=== PATIENT | male | born 1990 | race Caucasian/White ===

== ENCOUNTER 2020-04-08 11:14 | Emergency (ER) | payer MEDICAID ==
[2020-04-08] MEDS ORDERED: DIPH/PERTUSS(ACELL)/TETANUS VAC/PF 0.5 ML SYR (>=10YO) IM ONE (12:12)
--- NOTE | 2020-04-08 12:14 | ER Document Report ---
ED Medical Screen (RME) - General Chief Complaint: Foreign Body Stated Complaint: STEPPED ON A SCREW/LEFT FOOT Time Seen by Provider: 04/08/20 12:11 Mode of Arrival: Ambulatory Information source: Patient Notes: This 30-year-old male who stepped on a 2 inch Tae screw that penetrated through a sandal a sock and into his foot. He was coming down off a ladder when he stepped on it. He actually tried to remove it with a power drill and was and able to because it was too firmly placed in the bone. - Related Data Allergies/Adverse Reactions: No Known Allergies Allergy (Verified 04/08/20 12:03) Past Medical History - Social History Frequency of alcohol use: None Drug Abuse: None Past Surgical History: Reports: Hx Appendectomy Physical Exam - Vital signs Vitals: Temp Pulse Resp BP Pulse Ox 98.1 F 80 16 118/74 98 04/08/20 11:22 04/08/20 11:22 04/08/20 11:22 04/08/20 11:22 04/08/20 11:22 Course - Vital Signs Vital signs: Temp Pulse Resp BP Pulse Ox 98.1 F 80 16 118/74 98 04/08/20 12:04 04/08/20 11:22 04/08/20 11:22 04/08/20 11:22 04/08/20 11:22
[2020-04-08] MEDS ORDERED: HYDROCODONE/ACETAMINOPHEN 5-325 MG TABLET PO ONE (12:18)
--- NOTE | 2020-04-08 12:37 | RADIOLOGY REPORT (SQ) ---
EXAM DESCRIPTION: FOOT LEFT COMPLETE IMAGES COMPLETED DATE/TIME: 04/08/2020 12:22 pm REASON FOR STUDY: FB COMPARISON: None. EXAM PARAMETERS: NUMBER OF VIEWS: Three views. TECHNIQUE: AP, lateral and oblique radiographic images acquired of the left foot. LIMITATIONS: None. FINDINGS: MINERALIZATION: Normal. BONES: No acute fracture or dislocation. No worrisome bone lesions. JOINTS: No effusion. SOFT TISSUES: 7.5 cm length metallic screw radiopaque foreign body in the medial plantar soft tissues , approximately 3.5 cm of the foreign body is embedded in the soft tissues with the tip near the medi al cortex of the 1st metatarsal proximal metaphysis. . OTHER: No other significant finding. IMPRESSION: NO FRACTURE.7.5 cm length metallic screw radiopaque foreign body in the medial plantar s oft tissues, approximately 3.5 cm of the foreign body is embedded in the soft tissues with the tip ne ar the medial cortex of the 1st metatarsal proximal metaphysis. TECHNICAL DOCUMENTATION: JOB ID: [id number] [place]-72 2010 [employer]- All Rights Reserved Reading location - IP/workstation name: [email or web address]
[2020-04-08] MEDS ORDERED: FENTANYL CITRATE INJ/PF 100 MCG/2 ML AMPUL IV ONE (12:44)
--- NOTE | 2020-04-08 12:47 | ER Document Report ---
ED General - General Chief Complaint: Foreign Body Stated Complaint: STEPPED ON A SCREW/LEFT FOOT Time Seen by Provider: 04/08/20 12:11 Mode of Arrival: Ambulatory Notes: HPI: 30-year-old male who presents when he was walking on his flip-flops outside stepped on a screw. Tetanus shot unknown. Patient is not diabetic. He was unable to extract the screw himself. He denies pain or injury to any other location. ROS: See HPI Reviewed vital signs and nursing note as charted by RN. PHYSICAL EXAM: CONSTITUTIONAL: Alert and oriented and responds appropriately to questions. Well-appearing; well-nourished EXT: Patient is wearing socks or flip-flops. There was a screw to the plantar aspect to the flip-flop into the foot. No active bleeding appreciated - Related Data Allergies/Adverse Reactions: No Known Allergies Allergy (Verified 04/08/20 12:03) Past Medical History - General Information source: Patient - Social History Smoking Status: Former Smoker Frequency of alcohol use: None Drug Abuse: None Family History: Reviewed & Not Pertinent Patient has homicidal ideation: No Past Surgical History: Reports: Hx Appendectomy Physical Exam - Vital signs Vitals: Temp Pulse Resp BP Pulse Ox 98.1 F 80 16 118/74 98 04/08/20 11:22 04/08/20 11:22 04/08/20 11:22 04/08/20 11:22 04/08/20 11:22 Course - Re-evaluation Re-evalutation: 04/08/20 12:47 Given the history and physical we did obtain imaging showing what appears to be an embedded screw not Omar any bone. Tetanus has been updated. We will provide 50 mcg of fentanyl and place the patient on the monitor and attempt to gently extract the screw at this time. 04/08/20 15:37 [place] a with gentle extraction was unsuccessful. I did call and speak directly to the orthopedic surgeon. He states he was very comfortable with me performing conscious sedation and manual retraction. I have explained the risks and benefits with the patient and . They are comfortable with me performing the procedure. 04/08/20 15:37 Patient tolerated the procedure very well. We will provide antibiotics, crutches, strict return precautions with orthopedic follow-up. - Vital Signs Vital signs: Temp Pulse Resp BP Pulse Ox 98.1 F 80 16 118/74 98 04/08/20 12:04 04/08/20 11:22 04/08/20 11:22 04/08/20 11:22 04/08/20 11:22 Procedures - Conscious Sedation Conscious sedation Time started: 14:28 Time completed: 14:35 Consent obtained: Yes Normal healthy pt.: P1. - ASA Classification Airway Evaluation: Abnormal 3-3-2 rule Mallampati Classification: Class 2 Used during procedure: Suction available, IV access obtained, Pulse ox on pt., equipment monitor phototypesetting on pt. Medications administered: Other Reversal agents: None I personally performed/intraservice time: Sedation, Procedure, 30 min or less Complications: No Notes: We did use propofol. Using manual extraction I was able to remove the screw from the patient's plantar aspect of the foot. Discharge - Discharge Clinical Impression: Superficial foreign body, left foot, initial encounter Condition: Good Disposition: HOME, SELF-CARE Additional Instructions: Come back immediately for any increased pain, swelling, fever, discharge, or any other acute problems. Please follow-up with the orthopedic surgeon as we have provided an expedited for you. Prescriptions: Levofloxacin [Levaquin 500 mg Tablet] 500 mg PO DAILY #5 tablet Hydrocodone/Acetaminophen [[place] 5-325 mg Tablet] 1 tab PO Q8 #10 tablet Referrals: ANNIE GOULD JR, DO [ACTIVE PROVISIONAL STAFF] - Follow up as needed
[2020-04-08] MEDS ORDERED: PROPOFOL INJ 200 MG/20 ML VIAL IV ONE (13:52)
[2020-04-08] MEDS ORDERED: LEVOFLOXACIN 500 MG TABLET PO ONE (15:50)
[2020-04-08 16:12] VITALS: BP 139/89
== END 2020-04-08 16:32 | disposition home or self-care (01) ==
LOC: ER 11:14
DX: S91.342A Puncture wound with foreign body, left foot, initial encounter (principal); W22.8XXA Striking against or struck by other objects, initial encounter; Z87.891 Personal history of nicotine dependence
CPT/HCPCS: 99283; 99152; 90471; 73630; 90715; J3010; J3490; J2704